=== PATIENT | male | born 1965 | race Caucasian/White ===

== ENCOUNTER → 2016-12-22 | Day surgery (SDC) | payer OTHER ==
[~2016-12-22] MED LIST: ACETAMINOPHEN 1000 MG/100 ML 100 ML IV ONE; BUPIVACAINE/EPINEPHRINE 0.25% 50 ML VIAL ONE; KETOROLAC TROMETHAMINE 60 MG/2 ML (IM) VIAL IM ONE; LACTATED RINGER'S 1000 ML INJ 1,000 ML ONE; LIDOCAINE 1%/EPINEPHrine 1:200,000 PF SOLN 30 ML VIAL ONE; MIDAZOLAM HCL 2 MG/2 ML VIAL ONE; ONDANSETRON HCL 4 MG/2 ML VIAL IV PUSH ONE; PROPOFOL 200 MG/20 ML AMP IV ONE; SODIUM CHLORIDE 0.9% INJ 250 ML IV ONE; VANCOMYCIN HCL 1000 MG VIAL ONE; ceFAZolin INJ 1,000 MG VIAL ONE
--- NOTE | 2016-12-22 20:22 | MP ---
cc: JUAN ALBERTO DUTTA MD DATE OF SURGERY 12/22/16 PROCEDURE 1. Umbilical hernia repair with mesh. 2. Excision 1 x 1 cm left forearm lesion. PREOPERATIVE DIAGNOSIS 1. Reducible umbilical hernia 2. A 1 x 1 cm left forearm lesion. POSTOPERATIVE DIAGNOSIS 1. Reducible umbilical hernia 2. A 1 x 1 cm left forearm lesion. ANESTHESIA LMA. SURGEON Karine Dutta MD ESTIMATED BLOOD LOSS 30 mL FLUIDS 850 mL crystalloid COMPLICATIONS None. DRAINS None. SPECIMEN Left forearm lesion to pathology. PROCEDURE IN DETAIL The patient was taken to the operating room and placed on the operating table in the supine position. After an adequate level of laryngeal mask anesthesia was instituted, the abdomen and left forearm were shaved, prepped and draped. Time-out was taken confirming the correct patient, sites, and procedures to be performed. Skin and subcutaneous tissue was infiltrated with local anesthetic in the umbilicus and a transverse incision made below the umbilicus. Dissection was carried out to the fascia and the hernia sac was identified and opened. Preperitoneal fatty tissue was reduced into the abdominal cavity. The umbilical skin was completely mobilized and freed up from the underlying tissue and retracted out of the way. The fascial edges were then freshened up and the preperitoneal fat reduced inside the abdominal cavity. An 8 x 8 cm piece of Ventralex ST mesh was brought up and placed into the defect. The mesh was fixed at multiple points with 0 Prolene suture. This allowed for significant overlap between the edge of the hernia defect and the edge of the mesh. When this was completed, the fascia was closed in the midline with #1 Prolene in a longitudinal and simple interrupted fashion. Local anesthetic was then injected into the fascia with a total of 30 mL of 0.25% Marcaine with epinephrine utilized. The umbilical skin was then attached back down to the fascia with a 3-0 Vicryl suture. The wound was closed with interrupted 3-0 Vicryl and the skin closed with 5-0 PDS in a running subcuticular fashion. The wound was dressed with Steri-Strip on the incision, a 4x4 and a Tegaderm over the umbilicus. Attention was turned to the left forearm and an oval incision was made around the lesion after injecting with local anesthetic. The lesion was completely excised sharply, oriented with sutures and passed off the table. The wound was made hemostatic with electrocautery and then closed in two layers with interrupted 3-0 Vicryl suture and 5-0 PDS in a running subcuticular fashion. The wound was dressed with Steri-Strips. The patient was extubated and taken back to the recovery room in stable condition. He tolerated the procedure well. MD JULIA Vidales/ /11:26 AM /8:08 PM
== END | disposition home or self-care (01) ==
LOC: ESDC 08:06
PROVIDERS: ATTEND Surgery Trauma Surgery
DX: K42.9 Umbilical hernia without obstruction or gangrene (principal); C44.619 Basal cell carcinoma of skin of left upper limb, including shoulder
CPT/HCPCS: 00400; 00750; 11601; 49585; 88305; C1781; J0131; J0690; J1885; J2250; J2405; J3010; J3370; J7120